=== PATIENT | male | born 1965 | race Caucasian/White ===

== ENCOUNTER 2023-06-16 11:32 | Outpatient (CLI) | payer OTHER, SELFPAY ==
--- NOTE | 2023-06-16 11:42 | MR_ITS ---
WS: [id number] MRI RIGHT SHOULDER NONCONTRAST TECHNIQUE: Sagittal T2, coronal T1, T2 and proton density imaging. Axial gradient PDE imaging. CLINICAL INFORMATION: R SHOULDER INJURY COMPARISON: None. FINDINGS: Advanced arthritis AC joint. Mild edema. Mild downsloping acromion impinges on the distal supraspinat us. Small amount of subacromial and subdeltoid fluid. Chronic thinning of the distal supraspinatus. S mall undersurface tear supraspinatus deep to the acromion. Tiny insertional tear. Tendinopathy distal supraspinatus. Normal infraspinatus. Normal teres minor. Chronic appearing tear of the transverse humeral ligament w ith medial subluxation of the biceps tendon proximally. Intra-articular biceps tendon appears intact. Biceps labral anchor appears intact. Laxity with thinning of the subscapularis tendon likely due to prior tear. Moderate degenerative narrowing glenohumeral articulation. Normal bone marrow signal in t he humerus and glenoid. MR/MR shoulder RT wo con* [id number] IMPRESSION: 1. Advanced arthritis AC joint with mild edema and downsloping acromion. Impin gement distal supraspinatus. 2. Small undersurface tear distal supraspinatus deep to the acromion. Tiny ins ertional tear. 3. Chronic appearing tear of the transverse humeral ligament with medial sublu xation of the biceps tendon proximally. 4. Laxity with chronic thinning of the subscapularis tendon likely due to prio r partial tear. 5. Moderate degenerative narrowing glenohumeral articulation.
== END 2023-06-16 11:33 | disposition home or self-care (01) ==
LOC: RAD 11:34
PROVIDERS: Family Provider Nurse Practitioner Family; PCP Nurse Practitioner Family; Visit Provider Family Medicine
DX: Z01.89 Encounter for other specified special examinations (principal); M19.011 Primary osteoarthritis, right shoulder; M75.41 Impingement syndrome of right shoulder; S46.011A Strain of muscle(s) and tendon(s) of the rotator cuff of right shoulder, initial encounter; S43.081A Other subluxation of right shoulder joint, initial encounter
CPT/HCPCS: 73221